=== PATIENT | male | born 1945 | race Caucasian/White ===

== ENCOUNTER → 2020-07-27 | Outpatient (CLI) | payer MEDICARE ==
[~2020-07-27] MED LIST: AMLO-150 PO; ATOR40TA PO; BUSP10TA PO; BUSPIRONE HCL; CARV12.52 PO; DULO60CA7 PO; FERR325T18 PO; FURO40TA6 PO; GABA600T7 PO; LISI-167 PO; LISINOPRIL; METFORMIN; MINO2.5T PO; MINOXIDIL
[2020-07-27 18:02] LABS: MONOCYTES % (AUTO) 8 % (2-9); PLATELET COUNT 295 x10^3/uL (130-400)
[2020-07-27 18:04] LABS: BASOPHILS % (AUTO) 1 % (0-1); EOSINOPHILS % (AUTO) 4 % (1-7); LYMPHOCYTES % (AUTO) 15 % (22-44); MEAN CORPUSCULAR HEMOGLOBIN 28.1 pg (27.5-34.5); MEAN CORPUSCULAR HGB CONC 33.2 g/dL (33.2-36.2); MEAN PLATELET VOLUME 9.4 fL (7.4-10.4); NEUTROPHILS % (AUTO) 72 % (42-75); RED BLOOD COUNT 3.79 x10^6/uL (4.38-5.82); RED CELL DISTRIBUTION WIDTH 16.1 % (9.4-14.8)
[2020-07-27 18:10] LABS: CHLORIDE 104 mmol/L (98-107)
[2020-07-27 18:19] LABS: % IRON SATURATION 15 % (20-55); ANION GAP 7 mmol/L (5-15); CALCIUM 8.5 mg/dL (8.5-10.1); CREATININE 1.69 mg/dL (0.7-1.3); IRON LEVEL 50 mcg/dL (65-175); TOTAL IRON BINDING CAPACITY 330 mcg/dL (250-450)
[2020-07-27 18:49] LABS: MD NO
== END | disposition home or self-care (01) ==
LOC: LAB 17:03
PROVIDERS: ATTEND Registered Nurse
DX: J98.11 Atelectasis (principal); D64.9 Anemia, unspecified; I16.9 Hypertensive crisis, unspecified; E11.51 Type 2 diabetes mellitus with diabetic peripheral angiopathy without gangrene; I11.0 Hypertensive heart disease with heart failure; I50.23 Acute on chronic systolic (congestive) heart failure; E78.5 Hyperlipidemia, unspecified; I27.20 Pulmonary hypertension, unspecified; I49.5 Sick sinus syndrome; I73.9 Peripheral vascular disease, unspecified; Z95.0 Presence of cardiac pacemaker
CPT/HCPCS: 36415; 71046; 80048; 82728; 83036; 83540; 83550; 83880; 85025